=== PATIENT | female | born 1965 | race African-American/Black ===

== ENCOUNTER 2016-09-21 21:11 | Emergency (ER) | payer OTHER, MEDICAID ==
[~2016-09-21] VITALS: Ht 165.1 cm; Wt 75.0 kg
[~2016-09-21 21:11] MED LIST: BENA1TAB18 PO; CARV3.1242 PO; NITR0.4T SL; TRIA1CAP6 PO
[2016-09-21] MEDS ORDERED: KETOROLAC 30MG/ML VIAL IV STA (23:00)
[2016-09-21] MEDS ORDERED: SODIUM CHLORIDE 0.9% 1,000 ML IV ONE (23:00)
[2016-09-21 23:40] LABS: BASOPHILS % 0.7 % (0.0-2.0); EOSINOPHILS % 0.1 % (0.0-5.0); HEMATOCRIT. 37.7 % (36.0-48.0); HEMOGLOBIN. 12.5 g/dL (12.0-16.0); LYMPHOCYTES % 11.3 % (20.0-50.0); MEAN CORPUSCULAR HEMOGLOBIN 28.8 pg (28.0-32.0); MEAN CORPUSCULAR HGB CONC 33.3 g/dL (31.0-37.0); MEAN CORPUSCULAR VOLUME 86.6 fL (81.0-99.0); MEAN PLATELET VOLUME 8.5 fl (7.4-10.4); MONOCYTES % 4.2 % (2.0-8.0); NEUTROPHILS % 83.7 % (40.0-76.0); PLATELET 247 x1000/uL (130-400); RED BLOOD CELL COUNT 4.35 mill/uL (4.2-5.4); RED CELL DISTRIBUTION WIDTH 14.2 % (11.6-14.6); WHITE BLOOD COUNT 16.4 x1000/uL (4.5-11.0)
[2016-09-21 23:43] LABS: CLARITY URINE CLEAR (CLEAR); COLOR URINE DARK YELLOW (YELLOW); GLUCOSE URINE NEGATIVE (NEGATIVE); KETONES URINE TRACE (NEGATIVE); LEUKOCYTE ESTERASE URINE TRACE (NEGATIVE); NITRITE URINE NEGATIVE (NEGATIVE); OCCULT BLOOD URINE NEGATIVE (NEGATIVE); PROTEIN URINE 1+ (NEGATIVE); SPECIFIC GRAVITY URINE 1.025 (1.005-1.030)
[2016-09-21 23:50] LABS: ALBUMIN 3.6 g/dL (3.4-5.0); ANION GAP 14; CALCIUM 9.4 mg/dL (8.5-10.1); CARBON DIOXIDE 27 mEq/L (21-32); CHLORIDE 104 mEq/L (98-107); UREA NITROGEN BLOOD 14 mg/dL (7-21); eGFR > 60 mL/min (>60)
[2016-09-21 23:51] LABS: ALANINE AMINOTRANSFERASE 15 IU/L (13-61); CREATINE KINASE 48 IU/L (26-192); INDEX HEMOLYSI 1 (1-3); INDEX ICTERIC 1 (1-4); INDEX LIPEMIC 1 (1-3)
[2016-09-22 00:10] LABS: SQUAMOUS EPITHELIAL CELL URINE FEW /lpf (RARE/1+)
[2016-09-22 00:11] LABS: BACTERIA URINE NONE SEEN; RBC URINE 0-2 /hpf (0-2); WBC URINE 0-2 /hpf (0-2)
[2016-09-22 00:44] VITALS: BP 117/46
== END 2016-09-22 01:20 | disposition home or self-care (01) ==
LOC: ER 22:51
DX: M79.1 Myalgia (principal); I10 Essential (primary) hypertension; Z79.899 Other long term (current) drug therapy; Z98.890 Other specified postprocedural states
CPT/HCPCS: 36415; 71010; 80053; 81001; 82550; 85025; 93005; 96374; 99285; J1885; J7030; Z7610

== ENCOUNTER 2016-12-03 01:55 | Emergency (ER) | payer MEDICAID, OTHER ==
[~2016-12-03] VITALS: Ht 165.1 cm; Wt 73.0 kg
[2016-12-03 03:27] VITALS: BP 146/94
[2016-12-03] MEDS ORDERED: METOCLOPRAMIDE HCL 10MG/2ML VIAL IV ONE (03:30)
[2016-12-03] MEDS ORDERED: DIPHENHYDRAMINE 50MG/ML VIAL IV ONE (03:30)
== END 2016-12-03 05:29 | disposition home or self-care (01) ==
LOC: ER 01:55
DX: G43.909 Migraine, unspecified, not intractable, without status migrainosus (principal); I10 Essential (primary) hypertension; R19.7 Diarrhea, unspecified
CPT/HCPCS: 96374; 96375; 99284; J1200; J2765; Z7610